=== PATIENT | female | born 1945 | race Caucasian/White ===

== ENCOUNTER 2023-09-20 08:42 | Emergency (ER) | payer MEDICARE, MEDICAID, SELFPAY ==
[2023-09-20 08:42] VITALS: BP 147/75; PULSE 78; RESP 16; TEMP 36.8; O2SAT 99
--- NOTE | 2023-09-20 08:45 | XRR_ITS ---
PROCEDURE INFORMATION: Exam: XR Left Knee Exam date and time: 09/20/2023 9:04 AM Age: 78 years old Clinical indication: Injury or trauma; Fall; Blunt trauma; Knee; Left TECHNIQUE: Imaging protocol: Radiologic exam of the left knee. Views: 3 views. COMPARISON: No relevant prior studies available. FINDINGS: Bones/joints: No acute fracture or dislocation. Joint spacing and alignment are maintained. Soft tissues: Mild soft tissue edema. Vasculature: Peripheral arterial calcifications. XR/XR knee LT 3V* [id number] IMPRESSION: No acute findings.
--- NOTE | 2023-09-20 09:40 | XRR_ITS ---
PROCEDURE INFORMATION: Exam: XR Right Knee Exam date and time: 09/20/2023 9:56 AM Age: 78 years old Clinical indication: Injury or trauma; Fall; Blunt trauma; Knee; Right TECHNIQUE: Imaging protocol: Radiologic exam of the right knee. Views: 3 views. COMPARISON: No relevant prior studies available. FINDINGS: Bones/joints: No acute fracture or dislocation. Joint spacing and alignment are maintained. Soft tissues: Unremarkable. Vasculature: Peripheral arterial calcifications. XR/XR knee RT 3V* [id number] IMPRESSION: No acute findings.
--- NOTE | 2023-09-20 09:41 | XRR_ITS ---
PROCEDURE INFORMATION: Exam: XR Cervical Spine Exam date and time: 09/20/2023 9:56 AM Age: 78 years old Clinical indication: Injury or trauma; Fall; Blunt trauma TECHNIQUE: Imaging protocol: Radiologic exam of the cervical spine. Views: 2 or 3 views. COMPARISON: No relevant prior studies available. FINDINGS: Tubes, catheters and devices: Partially visualized right chest port. Surgical clips project over the left upper chest. Elongated rectangular metallic density projects over the left paramedian upper chest, likely external to the patient. Bones/joints: No acute fracture. Normal alignment. [id number] multilevel intervertebral disc space narrowing, osteophytosis, uncovertebral spurring and facet arthrosis throughout the cervical spine greatest at C4-C5. Soft tissues: Unremarkable. Vasculature: Aortic and bilateral carotid atherosclerotic calcification. XR/XR cervical spine 3V* [id number] IMPRESSION: 1. No acute findings. 2. Multilevel, multifactorial cervical spine degenerative changes greatest at C4-C5. 3. Atherosclerosis.
--- NOTE | 2023-09-20 09:42 | W.ED.EXTPRO ---
HPI - Extremity Problem General: Chief complaint: Extremity Injury, Lower Stated complaint: fall with left knee pain Time Seen by Provider: 09/20/23 08:45 Source: patient Mode of arrival: EMS History of Present Illness: 78-year-old female presents to the emergency room with complaints of neck pain and bilateral knee pain after having fallen. Patient states she did sit up she got dizzy and fell like her legs gave out on her she has had several falls recently she denies striking her head or losing consciousness she has some neck discomfort and bilateral knee pain. No vomiting no vision changes no focal neurologic deficits. She is not on any oral anticoagulants she does take aspirin daily MD Complaint: joint pain Onset (ago): minute(s) Location: left, right and knee Quality: aching Radiation: none Relieving factors: nothing Exacerbating factors: nothing Associated symptoms: Deny arthralgias, chest pain, fever(s), myalgias, rash or short of breath Review of Systems Const: Denies: fever(s) Card: Denies: chest pain Resp: Denies: dyspnea GI: Denies: abdominal pain : Denies: dysuria, urinary frequency or urinary urgency Musc: Denies: neck pain or back pain Skin/Breast: Denies: rash Physical Exam Const: COMMON NORMALS: no acute distress GENERAL APPEARANCE: cooperative and comfortable ORIENTATION/CONSCIOUSNESS: Yes awake, Yes oriented to person, Yes oriented to place and Yes oriented to time HENMT: COMMON NORMALS: normocephalic, atraumatic and hearing grossly normal bilaterally HEAD & SCALP: normocephalic and atraumatic Resp: COMMON NORMALS: normal respiratory effort, No retractions, No use of accessory muscles and clear to auscultation bilaterally AUSCULTATION: clear to auscultation bilaterally Cardio: COMMON NORMALS: regular rate, regular rhythm and No murmurs present (Cardio) RATE: regular rate RHYTHM: regular rhythm GI: COMMON NORMALS: Soft to palpation and No hepatosplenomegaly present AUSCULTATION: Yes normoactive bowel sounds PALPATION: Yes Soft to palpation, No Tenderness to palpation present (GI), No Guarding due to palpation present (GI) and Yes No hepatosplenomegaly present Extremity: COMMON NORMALS: normal to inspection, capillary refill normal, no clubbing, cyanosis or edema, no calf tenderness and no pedal edema Neuro: SENSORIUM/ORIENTATION: Yes oriented to person, Yes oriented to place and Yes oriented to time Skin: COMMON NORMALS: no rashes or lesions noted GENERAL SKIN EXAM: no rashes or lesions noted Course Vital Signs: Vital signs: Vital Signs Temperature 98.3 F 09/20/23 08:42 Pulse Rate 78 09/20/23 11:52 Respiratory Rate 16 09/20/23 08:42 Blood Pressure 140/73 09/20/23 11:52 Pulse Oximetry 99 09/20/23 08:42 Oxygen Delivery Me thod Room Air 09/20/23 08:42 MDM - Extremity (Nontraumatic) Medical Decision Making No fractures on x-rays no focal neurologic deficits on exam labs reviewed she does have some mild anemia MCV is normal. She denied having any signs of bleeding she has not noticed any GI evidence of GI bleed at this point. Reviewed with her encouraged her to have a repeat hemoglobin within the next week. Medical Records I reviewed the patient's medical records. Lab Data I reviewed the patient's lab results. 09/20/23 10:44 09/20/23 10:44 Radiology Impressions Knee X-Ray 09/20/23 09:40 IMPRESSION: No acute findings. Cervical Spine X-Ray 09/20/23 09:41 IMPRESSION: 1. No acute findings. 2. Multilevel, multifactorial cervical spine degenerative changes greatest at C4-C5. 3. Atherosclerosis. Laboratory Results WBC 4.96 10^3/uL (3.29-11.43) 09/20/23 10:44 RBC 3.33 10^6/uL (3.85-5.65) L 09/20/23 10:44 Hgb 9.50 g/dL (11.27-16.99) L 09/20/23 10:44 Hct 31.2 % (36-47) L 09/20/23 10:44 MCV 93.7 fl (85-98) 09/20/23 10:44 MCH 28.5 pg (27-33) 09/20/23 10:44 MCHC 30.4 g/dL (30-55) 09/20/23 10:44 RDW 18.6 % (12.1-15.1) H 09/20/23 10:44 Plt Count 276 10^3/cmm (157-399) 09/20/23 10:44 MPV 9.8 fL (7.4-10.4) 09/20/23 10:44 Neut % (Auto) 63.0 % 09/20/23 10:44 Lymph % (Auto) 13.5 % 09/20/23 10:44 Carroll % (Auto) 17.7 % 09/20/23 10:44 Eos % (Auto) 0.0 % 09/20/23 10:44 Baso % (Auto) 0.8 % 09/20/23 10:44 Neut # (Auto) 3.12 10^3/uL (1.8-7.7) 09/20/23 10:44 Lymph # (Auto) 0.7 10^3/uL (0.8-4.8) L 09/20/23 10:44 Carroll # (Auto) 0.9 10^3/uL (0.2-0.9) 09/20/23 10:44 Eos # (Auto) 0.0 10^3/uL (0.0-0.8) 09/20/23 10:44 Baso # (Auto) 0.0 10^3/uL (0.0-0.1) 09/20/23 10:44 Nucleated RBC % (auto) 0 % 09/20/23 10:44 Nucleated RBCs # 0.0 /100WBC 09/20/23 10:44 Sodium 138 mmol/L (136-145) 09/20/23 10:44 Potassium 4.2 mmol/L (3.5-5.1) 09/20/23 10:44 Chloride 100 mmol/L (98-107) 09/20/23 10:44 Carbon Dioxide 26 mmol/L (22-29) 09/20/23 10:44 Anion Gap 16.2 (5-19) 09/20/23 10:44 BUN 12 mg/dL (8-23) 09/20/23 10:44 Creatinine 0.7 mg/dL (0.5-0.9) 09/20/23 10:44 GFR Calculation Not Reportable 09/20/23 10:44 Glucose 143 mg/dL (65-115) H 09/20/23 10:44 Calculated Osmolality 288 mOsm/kg (285-295) 09/20/23 10:44 Calcium 9.4 mg/dL (8.5-10.5) 09/20/23 10:44 All radiology interpretation(s) finalized by discharge Discharge Plan Discharge Patient Disposition: Home Clinical Impression: Fall Condition: Stable Prescriptions: No Action clonidine HCl 0.1 mg Tablet 0.1 mg PO BID PRN (Reason: Blood Pressure) famotidine 40 mg tablet 40 mg PO BID amlodipine 5 mg tablet 5 mg PO DAILY Aspir-81 81 mg Tablet,Delayed Release (Dr/Ec) 81 mg PO DAILY levothyroxine 25 mcg tablet 25 mcg PO DAILY meclizine 25 mg tablet 25 mg PO Q6H PRN (Reason: Motion Sickness) pantoprazole 40 mg tablet,delayed release (DR/EC) 40 mg PO DAILY metoprolol succinate 25 mg tablet extended release 24 hr 12.5 mg PO DAILY lisinopril 40 mg tablet 40 mg PO DAILY calcium citrate 200 mg (950 mg) Tablet 200 mg PO DAILY vitamin O88-haicm acid 0.5-1 mg Tablet 1 tab PO DAILY metformin 500 mg tablet extended release 24 hr 500 mg PO BID PRN (Reason: blood sugar) Discharge Orders: Discharge ED (Routine); Ordered 09/20/23 Ordered By: Nitin Pruitt Discharge Diet: Usual diet Discharge Activity: Increase activity as tolerated Patient Instructions: Opioid Safety, Pain Management Activity Restrictions/Additional Instructions: Thank you for choosing [facility] for your healthcare needs today. Please realize this is an emergency room and that we are providing you with a medical screening exam and this may not be complete and all inclusive of all the testing and or work up that you may need to determine your ailment or severity of your illness. It is very important that you follow up as instructed or that you return to the Emergency Department should you have concerns or if your condition changes or worsens in any way. You are seen emergency room after a fall x-rays did not show any acute fractures. Laboratory chest showed mild anemia but other electrolytes kidney function were normal. Follow-up with your primary care doctor in 1 week to recheck your hemoglobin. Coding Level of Care Code ED Control Specialist for Melvin Gonzalez
[2023-09-20 10:56] LABS: Basophils % 0.8 %; Hematocrit 31.2 % (36-47); Lymphocytes # 0.7 10^3/uL (0.8-4.8); Lymphocytes % 13.5 %; Mean Corpuscular HGB Conc 30.4 g/dL (30-55); Mean Corpuscular Hemoglobin 28.5 pg (27-33); Mean Corpuscular Volume 93.7 fl (85-98); Mean Platelet Volume 9.8 fL (7.4-10.4); Monocytes # 0.9 10^3/uL (0.2-0.9); Monocytes % 17.7 %; Neutrophils # 3.12 10^3/uL (1.8-7.7); Nucleated Red Blood Cells % 0 %; Platelet Count 276 10^3/cmm (157-399); Red Blood Count 3.33 10^6/uL (3.85-5.65); Red Cell Distribution Width 18.6 % (12.1-15.1); White Blood Count 4.96 10^3/uL (3.29-11.43)
[2023-09-20 11:23] LABS: Anion Gap 16.2 (5-19); Blood Urea Nitrogen 12 mg/dL (8-23); Calcium 9.4 mg/dL (8.5-10.5); Carbon Dioxide 26 mmol/L (22-29); Chloride 100 mmol/L (98-107); Glucose 143 mg/dL (65-115); Osmolality Calculated 288 mOsm/kg (285-295); Potassium 4.2 mmol/L (3.5-5.1); Sodium 138 mmol/L (136-145)
[2023-09-20 11:52] VITALS: BP 131/91; BP 140/73; BP 160/59; PULSE 78; PULSE 82; PULSE 88
== END 2023-09-20 13:11 | disposition home or self-care (01) ==
PROVIDERS: Emergency Provider Family Medicine
DX: M54.2 Cervicalgia (principal); Z79.82 Long term (current) use of aspirin; Z79.84 Long term (current) use of oral hypoglycemic drugs; I70.90 Unspecified atherosclerosis; W19.XXXA Unspecified fall, initial encounter
CPT/HCPCS: 36415; 72040; 73562; 80048; 85025; 99284

== ENCOUNTER 2025-05-01 05:00 | Outpatient (RCR) | payer MEDICAID, MEDICARE, SELFPAY | END 2025-05-31 23:59 | disposition home or self-care (01) | LOC: SOT 05:00 | PROVIDERS: Visit Provider Nurse Practitioner Family | DX: R26.2 Difficulty in walking, not elsewhere classified (principal) | CPT/HCPCS: 97167 ==